=== PATIENT | male | born 1960 | race Caucasian/White ===

== ENCOUNTER 2020-04-12 08:48 | Outpatient (CLI) | payer MEDICARE, SELFPAY ==
--- NOTE | 2020-04-12 09:12 | CT_ITS ---
WS: [id number] CT NECK WITH CONTRAST HISTORY: TONSIL CANCER TECHNIQUE: Contiguous 5 mm axial images are performed through the neck with intravenous contrast. Sag ittal and coronal reformats are also submitted. All CT scans at [facility] use at least o ne of these dose optimization techniques: automated exposure control; mA and/or kV adjustment per pat ient size (includes targeted exams where dose is matched to clinical indication); or iterative recons truction. CONTRAST: CONTRAST: Omnipaque 300; 75 mL IV. DLP: 2710.46 mGycm COMPARISON: 09/28/2019 and 12/22/2018 Nasopharynx, oropharynx, hypopharynx and larynx are unremarkable. No soft tissue masses or abnormal e nhancement. No evidence for recurrent tonsillar or peritonsillar mass or neoplasm. Torus tubarius and fossa of Rosenmuller and parapharyngeal fat are normal. No significant lymphadenopathy is identified. Thyroid gland and salivary glands are normally enhancing with no masses. Degenerative disc disease and osteophytic changes throughout the cervical spine. 2 mm retrolisthesis of C3. No osteoblastic or osteolytic changes. Mild central and foraminal stenosis at multiple levels in the cervical spine from degenerative changes. Visualized portions of the skull base demonstrate no abnormalities. Orbits and globes are within norm al limits. No soft tissue masses. Visualized paranasal sinuses and mastoid air cells are normal. Lung apices are clear. CT/CT neck w con* [id number] IMPRESSION: 1. No cervical chain lymphadenopathy. 2. No recurrent or residual tonsillar carcinoma identified.
--- NOTE | 2020-04-12 09:12 | CT_ITS ---
WS: [id number] CT CHEST WITH INTRAVENOUS CONTRAST HISTORY: TONSIL CANCER TECHNIQUE: Contiguous 5 mm axial imaging performed on the thorax. Coronal and sagittal reformats are submitted. All CT scans at [facility] use at least one of these dose optimization techniq ues: automated exposure control; mA and/or kV adjustment per patient size (includes targeted exams wh ere dose is matched to clinical indication); or iterative reconstruction. CONTRAST: Omnipaque 300; 75 mL IV. DLP: 554.67 mGycm COMPARISON: 09/28/2019 Lungs and central airway: No pulmonary nodule or mass or pneumonia. Pleura: Normal. No pleural effusion. Heart and pericardium: Normal size heart. No pericardial effusion. Mediastinum and ximena: No mediastinum or hilar adenopathy. Vessels: Normal size aortic and pulmonary artery. No coronary artery calcifications. Chest wall and lower neck: No soft tissue masses. Upper abdomen: Small hiatal hernia. Visualized liver is negative. Normal adrenal glands. Osseous structures: Degenerative disc disease and spondylitic changes in the midthoracic spine. No os teoblastic or osteolytic bone disease. CT/CT chest w con* [id number] IMPRESSION: 1. No evidence for metastatic disease to the lungs. 2. No adenopathy. 3. Small hiatal hernia.
[2020-04-12] MEDS: iohexol 300 mg/mL 100 mL Btl IV ×2 (09:35→09:36)
== END 2020-04-12 08:49 | disposition home or self-care (01) ==
PROVIDERS: Family Provider Family Medicine; Visit Provider Radiology Radiation Oncology
DX: C09.9 Malignant neoplasm of tonsil, unspecified (principal)
CPT/HCPCS: 70491; 71260; Q9967

== ENCOUNTER 2020-04-14 14:32 | Outpatient (CLI) | payer MEDICARE, SELFPAY ==
--- NOTE | 2020-04-14 16:33 | ONCRAD EPV_ITS ---
Radiation Oncology Established Patient Visit Patient: Ashlyn MR#: [id number] : 1960> Age: 59> Sex: Male> Dictated by: Dr. James Silverman Date of Service: 04/14/2020 Referring Physician(s) : Dr. Zachary Kennedy Diagnosis: C09.9 - Malignant neoplasm of tonsil, unspecified, Diagnosed 07/11/2018 (Active) Radiotherapy to Date: Course: Head Neck, Treatment Site: [facility]54Gy, Ref. ID: [id number], Energy: 6X, Dose/Fx (cGy): 200, #Fx: , Dose Correction (cGy): 0, Total Dose (cGy): 2,400, Start Date: 09/11/2018, End Date: 09/26/2018, Elapsed Days: 15 Treatment Site: [facility]54Gy, Ref. ID: [id number], Energy: 6X, Dose/Fx (cGy): 200, #Fx: 4 / 4, Dose Correction (cGy): 0, Total Dose (cGy): 800, Start Date: 10/01/2018, End Date: 10/28/2018, Elapsed Days: 27 Treatment Site: [facility]54Gy, Ref. ID: [id number], Energy: 6X, Dose/Fx (cGy): 200, #Fx: 5 / 5, Dose Correction (cGy): 0, Total Dose (cGy): 1,000, Start Date: 10/29/2018, End Date: 11/04/2018, Elapsed Days: 6 Treatment Site: [facility]54Gy, Ref. 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 Doing well overall he is eating well. His taste is improving. His saliva has improved. He is fully active with good energy level. He has gained some weight back. He has no neck or swallowing pain. He continues to chew one third of a can of chewing tobacco a day. Prior to treatment he had full mouth extraction and wears only his upper dentures he cannot place his lower dentures as they do not fit well. Current Medications: Gabapentin, hydrocodone-Acetaminophen, omeprazole, one Daily Mens 50+ Multivit. Allergies: No Known Allergies Current Complaints / Review of Systems: Constitutional - Denies lack of appetite, fatigue, fever and night sweats. Eyes - Denies blurred vision but close vision has gotten worse. ENMT - Complains of problems with hearing, mouth dryness but has improved and tinnitus. Denies dysphagia but has odynophagia with a certain medication, ear pain, stomatitis but has a sore on the left corner of his mouth and altered taste. Neck - Denies neck pain and decreased range of motion. Integumentary - Complains of rash off and on the back of the neck from Shingles. Cardiovascular - Denies chest pain and edema. Respiratory - Denies cough, dyspnea, hiccoughs and wheezing. Gastrointestinal - Complains of occasional constipation. Complains of heartburn / dyspepsia. Denies abdominal pain, diarrhea, hemorrhoids, melena / GI bleeding, nausea and vomiting. Genitourinary (M) - Complains of frequency and nocturia gets up 4 to 5 times per night. Denies dysuria and urgency. Musculoskeletal - Complains of joint pain in the back, right shoulder and knuckles of the fingers.. Denies bone pain and muscle weakness. Neurologic - Denies dizziness and headaches. Endocrine - Denies diabetes and thyroid disease. Hematologic/Lymphatic - Denies tender or enlarged lymph nodes.. Vital Signs: Performed on 04/14/2020 2:58 PM BMI - 27.096 kg/m2 (high), Height - 67.00 in, Weight - 173.0 lbs, Temperature - 98.7 f, Pulse - 67, Respiration - 18, O2 Sat - 97 %, Pain - 0 and BP - 123/ 75 mm(hg). Physical Exam: General: Alert and oriented x 3. No acute distress. HEENT examination revealed normal-appearing oral cavity. Tonsillar regions were symmetric with normal-appearing mucosa. He had good pooling of his saliva in the oral cavity. Bimanual palpation of the tongue base and tonsil region were normal. Next were supple with no adenopathy. Performance Status: 0 - Fully active, able to carry on all predisease activities without restrictions. (ECOG) Lab: None pending. Pathology: Primary, c09.9 - malignant neoplasm of tonsil, unspecified, Diagnosed 07/11/2018 (active) and Secondary, z92.3 - personal history of irradiation, Diagnosed 04/21/2019 (active). Imaging: CT scan of the neck and chest from April 12, 2020 revealed symmetric oral pharynx with no tonsillar or other masses. Neck regions revealed no adenopathy. CT scan of the chest also from 07/13/2020 revealed no mediastinal adenopathy or pulmonary nodules. Impression: In summary my impression is that of bulky stage Tamy (T4 N1 M0) squamous cell carcinoma the right tonsil and neck. He has had an excellent response to treatment is chronic toxicities of diminished taste and salivation are slowly improving. He has no desire for any saliva augmentation. I did rehabilitation counselor him to quit chewing tobacco. We will schedule him in follow-up in [address] scan of the neck and chest. Signed by: 04/14/2020 4:32:03 PM <<Signature on File>> Time spent with patient: CPT Code: CPT Code:
== END 2020-04-14 14:33 | disposition home or self-care (01) ==
LOC: ONCMED 14:35
PROVIDERS: PCP Family Medicine; Visit Provider Radiology Radiation Oncology
DX: C09.9 Malignant neoplasm of tonsil, unspecified (principal); F17.220 Nicotine dependence, chewing tobacco, uncomplicated; Z92.3 Personal history of irradiation
CPT/HCPCS: 99214

== ENCOUNTER 2020-10-28 08:37 | Outpatient (CLI) | payer MEDICARE, SELFPAY ==
--- NOTE | 2020-10-28 08:48 | CT_ITS ---
WS: [id number] CT scan of the chest with IV contrast, additional two-dimensional coronal and sagittal reconstruction was performed. 10/28/2020 Clinical Data: MALIGNANT NEOPLASM OF TONSIL Comparison: CT chest, 04/12/2020. DLP: 537.[address] scans at [facility] use at least one of these dose optimization techniques: automat ed exposure control; mA and/or kV adjustment per patient size (includes targeted exams where dose is matched to clinical indication); or iterative reconstruction. Findings: There is no evidence of metastatic disease. No nodules, masses or effusions are seen. The heart size is normal with no pericardial effusion. The pulmonary arterial system and thoracic aorta demonstrate no abnormalities or dilatations. No pneumoni a or pneumothorax is seen. There is no axillary or significant mediastinal adenopathy. There is a sma ll hiatal hernia. Minimal degenerative change of the thoracic vertebral bodies is seen. The upper abdomen shows no change from before. CT/CT chest w con* [id number] Impression: 1. Negative for acute cardiopulmonary disease. 2. Negative for metastatic disease.
--- NOTE | 2020-10-28 08:49 | CT_ITS ---
WS: [id number] CT scan of the neck. Additional two-dimensional coronal and sagittal reconstruction was performed. Clinical Data: MALIGNANT NEOPLASM OF TONSIL Comparison: CT neck, 04/12/2020. DLP: 2849.[address] scans at [facility] use at least one of these dose optimization techniques: automat ed exposure control; mA and/or kV adjustment per patient size (includes targeted exams where dose is matched to clinical indication); or iterative reconstruction. Findings: No tumor recurrence of the right tonsillar mass is seen. The oral pharynx, region of the tonsils and nasopharynx show only minimal scarring on the right. This is unchanged from the previous study. No lymphadenopathy is noted. The salivary glands are unremarkable. There is no prevertebral soft tiss ue swelling. The larynx is symmetric. The thyroid gland shows normal enhancement. The floor of the mo uth and parapharyngeal spaces are normal. The oral cavity is unremarkable. The carotid arteries bifurcate normally. The vertebral arteries are unremarkable. The cervical spine shows osteoarthritis and multiple levels of degenerative disc narrowing. The lung apices show no abno rmalities. The portions of the intracranial circulation which are seen demonstrate no abnormalities. No erosion of the skull or skull base is seen. CT/CT neck w con* [id number] Impression: 1. Minimal scarring in the region of the right tonsil. 2. No evidence of any tumor recurrence. 3. Negative for lymphadenopathy.
[2020-10-28] MEDS: iohexol 300 mg/mL 100 mL Btl IV ×2 (09:17→09:22)
== END 2020-10-28 08:38 | disposition home or self-care (01) ==
LOC: RADWPI 08:43
PROVIDERS: PCP Family Medicine; Visit Provider Radiology Radiation Oncology
DX: C09.9 Malignant neoplasm of tonsil, unspecified (principal); Z92.3 Personal history of irradiation
CPT/HCPCS: 70491; 71260; Q9967

== ENCOUNTER 2020-11-04 08:06 | Outpatient (CLI) | payer MEDICARE, SELFPAY ==
--- NOTE | 2020-11-04 09:18 | ONCRAD EPV_ITS ---
Radiation Oncology Established Patient Note Patient: Caden Whitmore MR#: [id number] : 1960 Attending Physician: Gm Jane M.D. Date of Service: 11/04/2020 Caden Whitmore returned to my office this morning for a scheduled follow-up appointment. He completed head and neck radiotherapy in October 2018 for the management of his clinical stage RADHA (T4N1) squamous cell carcinoma of the right tonsil. Radiotherapy was administered between the dates of September 11, 2018 through November 07, 2018. A prescribed dose of 70 Gy was delivered in 35 fractions over 58 elapsed days. On review of systems, the patient denied any constitutional complaints including unintentional weight loss or fevers of unknown origin. He described improvement in xerostomia and dysgeusia. He denied any palpable lymphadenopathy in the neck. On physical examination, the patient weighed of 177 pounds. The temperature is 97.6???F. His blood pressure was 123/78 mmHg. The pulse was 63 bpm and his respiratory rate was 18 breaths per minute. The oral cavity had dry mucous membranes. There were no oropharyngeal masses. Examination of the neck did not demonstrate any hyperpigmentation. No palpable cervical adenopathy was noted. In summary, Caden Whitmore returned for a routinely scheduled follow-up. A follow-up CT of the neck and chest did not find recurrent nor metastatic disease. I will obtain a TSH level and he will continue follow-up with medical oncology as scheduled. Signed by: Dr. Gm Jane 11/04/2020 9:16:26 AM
[2020-11-04 10:17] LABS: Thyroid Stimulating Hormone 2.95 uIU/mL (0.27-4.20)
== END 2020-11-04 08:07 | disposition home or self-care (01) ==
LOC: ONCMED 08:09
PROVIDERS: PCP Family Medicine; Visit Provider Radiology Radiation Oncology
DX: Z08 Encounter for follow-up examination after completed treatment for malignant neoplasm (principal); Z85.818 Personal history of malignant neoplasm of other sites of lip, oral cavity, and pharynx
CPT/HCPCS: 36415; 84443; 99214

== ENCOUNTER 2021-05-24 07:49 | Outpatient (CLI) | payer MEDICARE, SELFPAY ==
--- NOTE | 2021-05-24 08:50 | ONC FU_ITS ---
Dr. Bergeron follow up note Patient: Caden Whitmore Unit #: [id number]: 1960 Dicatated By: Jamari Bergeron M.D.Date of Visit:May 24, 2021 Onc Med Follow-up/Prog Note History of Present Illness: Mr. Caden Whitmore is a 60-year-old gentleman with prolonged history of chew tobacco noted a mass in his throat on the right side, he tried antibiotics that did not help him much and the mass continued to grow slowly subsequently he was evaluate by ENT and biopsy was obtained which confirmed squamous cell carcinoma, p16 positive. Patient underwent CT PET scan on 07/05/2018 which showed extensive lymphadenopathy including FDG positive mediastinal lymph nodes. Has history of chronic back pain/right shoulder pain for which he takes narcotics prescribed by PMD Started on combined chemoradiation and first dose of chemotherapy with high-dose cisplatin was given on 09/11/2018 And second and final dose was given on 10/09/2018. History of abnormal LFTs due to Tylenol consumption for pain due to injury . As per patient his LFTs improved when he stopped taking Tylenol , CT scan of head and neck on 12/22/2018 by radiation oncology.Showed improved or essentially resolved right tonsillar carcinoma Previously described cervical lymphadenopathy has resolved, post treatment changes noted He still use G-tube on as-needed basis. Came for follow-up, denies any specific complaints, no fever chills, no nausea or vomiting, no hemoptysis hematemesis, no dysphagia, no cervical lymphadenopathy, no hemoptysis or hematemesis. Patient has been following radiation oncology and saw Dr. Silverman in October 2020, at that time, as per patient his CT scan of neck and chest showed no evidence of recurrence of disease or any abnormality in the chest. Patient said he used to follow Dr. Kennedy, ENT physician before but because of copayment of $50, he stopped going to ENT letter was followed by radiation oncology on regular basis, last time he saw Dr. Jane who is a new radiation oncologist and he asked him to see medical oncology or ENT for regular follow-up. Medications: Hydrocodone-Acetaminophen 1 Tablet (of 10-325 mg) Tablet Oral q 6 hours, Omeprazole 1 Capsule (of 40 mg) Capsule Delayed Release Oral daily, One Daily Mens 50+ Multivit 1 Tablet Oral daily Allergies: No Known Allergies. Review of Systems: Review of Systems is not available for this patient. Vital Signs: Performed on May 24, 2021 08:11 Height - 67.00 in Weight - 175.4 lbs (LOW) BSA - 1.91 sq.m BMI - 27.47 Temperature - 98.5 F Pulse - 55 /min (LOW) Respiration - 18 /min BP - 132/77 mm(hg) O2 Sat - 98 % Pain - 0 Fatigue - 5 Performance Status: 0 - Fully active, able to carry on all predisease activities without restrictions. (ECOG) Physical Examination: ENMT - No mouth sores, no thrush, no jaundice but poor oral hygiene, Respiratory - Lungs are clear to auscultation, Cardiovascular - Regular rate and rhythm of heart, Abdomen - Soft, bowel sounds present, Extremities - No visible edema. Lab/Imaging: Most recent lab results are not available for this patient. 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 Metastatic the right jugular digastric lymph nodes, metastatic mediastinal lymph nodes in subcarinal, inferior right paratracheal and AP window regions suspicious low-grade uptake in the right supraclavicular lymph node On 09/11/2018 Started on combined chemoradiation with high-dose cisplatin every 3 weeks ???2 Second and last course of high-dose cisplatin was given on 10/09/2018 Follow-up CT scan of neck done on 12/22/2018 showed improved or essentially resolved right tonsil carcinoma no residual enhancing mass, previously described cervical lymphadenopathy has resolved. Post Treatment changes noted History of abnormal LFTs, as per patient this was due to Tylenol consumption for pain due to injury, his LFTs improved when he stopped taking Tylenol. Status post mediastinoscopy done on 07/23/2018 and right paratracheal lymph node was biopsied and it was reactive, no evidence of malignancy. CT scan of chest done on October 28, 2020 showed no evidence of metastatic disease or other abnormality Plan: Discussed with patient regarding his question concerns and follow-up plans as radiation oncology suggested him to follow-up with either medical oncology or ENT but patient does not want to go to ENT because of copayment issues. In that case we will follow him with a physical exam, radiological studies, on exam there is no cervical lymphadenopathy, limited oral exam, no obvious changes but poor oral hygiene and, patient still chewing tobacco. Patient was advised to quit chewing tobacco and was offered any assistance he may need., At this point we will consider follow-up CT scan of neck, as CT scan of chest done on October 28, 2020 showed no evidence of metastatic disease or other abnormality so we will continue with yearly low contrast CT scan of chest, as patient has 3 to 7% risk of developing a second primary in the lung. And continue with 6 to 8-month CT scan of neck unless patient develop new symptoms. Patient return to clinic in 1 month with CBC CMP and TSH and CT scan of the neck Signed By: Jamari Bergeron M.D. <<Signature on File>>
== END 2021-05-24 07:50 | disposition home or self-care (01) ==
LOC: ONCMED 07:51
PROVIDERS: PCP Family Medicine; Visit Provider Internal Medicine Hematology & Oncology
DX: Z08 Encounter for follow-up examination after completed treatment for malignant neoplasm (principal); Z85.89 Personal history of malignant neoplasm of other organs and systems; Z92.21 Personal history of antineoplastic chemotherapy; Z92.3 Personal history of irradiation; F17.220 Nicotine dependence, chewing tobacco, uncomplicated; Z79.899 Other long term (current) drug therapy
CPT/HCPCS: 99214

== ENCOUNTER 2021-06-20 08:42 | Outpatient (CLI) | payer MEDICARE, SELFPAY ==
--- NOTE | 2021-06-20 08:54 | CT_ITS ---
WS: [id number] Exam: CT neck w con* [id number] Date/Time of Exam: 06/20/2021 8:54 AM Reason For Exam: MALIGNANT NEOPLASM OF THE TONSILS DLP: 1230.[address] scans at [facility] use at least one of these dose optimization techniques: automat ed exposure control; mA and/or kV adjustment per patient size (includes targeted exams where dose is matched to clinical indication); or iterative reconstruction. The neck is evaluated in the axial plane with sagittal and coronal reformatted images. Intravenous co ntrast was administered. There was no sign of neck mass or significant lymphadenopathy. The submandibular glands and parotid g lands are symmetrical side to side. The airway is patent. No mass is seen in the region of the tongue base. Vascular structures are unremarkable in appearance. Normal thyroid tissue. No superior mediast inal lymphadenopathy. Mucosal thickening in the floor the left maxillary sinus. Marked rightward rosetta ation of the nasal septum. Visualized upper lung zones are clear. No destructive bone lesions. Degene rative changes of the cervical spine. CT/CT neck w con* [id number] IMPRESSION: 1. No indication of neck mass or significant cervical lymphadenopathy. 2. Other minor findings as above.
[2021-06-20] MEDS: iohexol 300 mg/mL 100 mL Btl IV (09:14)
== END 2021-06-20 08:43 | disposition home or self-care (01) ==
PROVIDERS: PCP Family Medicine; Visit Provider Internal Medicine Hematology & Oncology
DX: C09.9 Malignant neoplasm of tonsil, unspecified (principal)
CPT/HCPCS: 70491; Q9967

== ENCOUNTER 2021-06-26 11:47 | Outpatient (CLI) | payer MEDICARE, SELFPAY ==
[2021-06-26 12:15] LABS: Basophils % 0.2 %; Eosinophils # 0.1 10^3/uL (0.0-0.8); Eosinophils % 3.2 %; Hematocrit 39.1 % (42.0-52.0); Hemoglobin 13.2 g/dL (11.7-16.6); Lymphocytes # 1.7 10^3/uL (0.8-4.8); Lymphocytes % 38.1 %; Mean Corpuscular HGB Conc 33.8 g/dL (30.0-36.0); Mean Corpuscular Hemoglobin 28.9 pg (28.0-34.0); Mean Corpuscular Volume 85.6 fL (80-94); Mean Platelet Volume 8.6 fL (7.4-10.4); Monocytes # 0.5 10^3/uL (0.2-0.9); Monocytes % 11.1 %; Neutrophils # 2.05 10^3/uL (1.8-7.7); Neutrophils % 47.4 %; Nucleated Red Blood Cells % 0 %; Platelet Count 251 10^3/cmm (130-400); Red Blood Count 4.57 10^6/uL (4.1-5.3); Red Cell Distribution Width 12.7 % (12.1-15.1); White Blood Count 4.3 10^3/uL (4.0-10.0)
[2021-06-26 12:53] LABS: Alanine Aminotransferase 12 U/L (0-41); Albumin Level 4.2 g/dL (3.5-5.2); Alkaline Phosphatase 69 IU/L (40-130); Aspartate Amino Transferase 20 U/L (0-40); Blood Urea Nitrogen 17 mg/dL (6-20); Carbon Dioxide 28 mmol/L (22-29); Chloride 102 mmol/L (98-107); Globulin 2.6 g/dL (1.3-4.6); Glomerular Filtration Rate 99.3 mL/min (90-130); Glucose 84 mg/dL (65-115); Osmolality Calculated 285 mOsm/kg (285-295); Sodium 137 mmol/L (136-145); Thyroid Stimulating Hormone 4.29 uIU/mL (0.27-4.20); Total Bilirubin 0.2 mg/dL (0.15-1.2); Total Protein 6.8 g/dL (6.6-8.7)
--- NOTE | 2021-06-26 16:46 | ONC FU_ITS ---
Dr. Bergeron follow up note Patient: Caden Whitmore Unit #: [id number]: 1960 Dicatated By: Jamari Bergeron M.D.Date of Visit:Jun 26, 2021 Onc Med Follow-up/Prog Note History of Present Illness: Mr. Caden Whitmore is a 60-year-old gentleman with prolonged history of chew tobacco noted a mass in his throat on the right side, he tried antibiotics that did not help him much and the mass continued to grow slowly subsequently he was evaluate by ENT and biopsy was obtained which confirmed squamous cell carcinoma, p16 positive. Patient underwent CT PET scan on 07/05/2018 which showed extensive lymphadenopathy including FDG positive mediastinal lymph nodes. Has history of chronic back pain/right shoulder pain for which he takes narcotics prescribed by PMD Started on combined chemoradiation and first dose of chemotherapy with high-dose cisplatin was given on 09/11/2018 And second and final dose was given on 10/09/2018. History of abnormal LFTs due to Tylenol consumption for pain due to injury . As per patient his LFTs improved when he stopped taking Tylenol , CT scan of head and neck on 12/22/2018 by radiation oncology.Showed improved or essentially resolved right tonsillar carcinoma Previously described cervical lymphadenopathy has resolved, post treatment changes noted Came for follow-up, denies any specific complaints, no fever chills, no nausea or vomiting, no diarrhea constipation, no dysphagia or hemoptysis or hematemesis, still chewing tobacco but denies smoking Medications: Hydrocodone-Acetaminophen 1 Tablet (of 10-325 mg) Tablet Oral q 6 hours, Omeprazole 1 Capsule (of 40 mg) Capsule Delayed Release Oral daily, One Daily Mens 50+ Multivit 1 Tablet Oral daily Allergies: No Known Allergies. Review of Systems: Review of Systems is not available for this patient. Vital Signs: Performed on Jun 26, 2021 16:33 Height - 67.00 in Weight - 170.8 lbs (LOW) BSA - 1.89 sq.m BMI - 26.75 Temperature - 98.9 F (HIGH) Pulse - 57 /min (LOW) Respiration - 18 /min BP - 124/63 mm(hg) O2 Sat - 96 % Pain - 0 Fatigue - 5 Performance Status: 0 - Fully active, able to carry on all predisease activities without restrictions. (ECOG) Physical Examination: ENMT - Poor oral hygiene, with palpable in the mouth, no thrush or sores or lymphadenopathy, Respiratory - Lungs are clear to auscultation, Cardiovascular - Regular rate and rhythm of heart, Abdomen - Soft, bowel sounds present, Extremities - No visible edema. Lab/Imaging: Most recent lab results are not available for this patient. 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 Metastatic the right jugular digastric lymph nodes, metastatic mediastinal lymph nodes in subcarinal, inferior right paratracheal and AP window regions suspicious low-grade uptake in the right supraclavicular lymph node On 09/11/2018 Started on combined chemoradiation with high-dose cisplatin every 3 weeks ???2 Second and last course of high-dose cisplatin was given on 10/09/2018 Follow-up CT scan of neck done on 12/22/2018 showed improved or essentially resolved right tonsil carcinoma no residual enhancing mass, previously described cervical lymphadenopathy has resolved. Post Treatment changes noted History of abnormal LFTs, as per patient this was due to Tylenol consumption for pain due to injury, his LFTs improved when he stopped taking Tylenol. Status post mediastinoscopy done on 07/23/2018 and right paratracheal lymph node was biopsied and it was reactive, no evidence of malignancy. CT scan of chest done on October 28, 2020 showed no evidence of metastatic disease or other abnormality Plan: Discussed with patient regarding his labs white blood count 4.3 hemoglobin 13.2 hematocrit 39.1 platelets 251,000 CMP within normal limits and follow-up CT scan of neck done on June 20, 2021 shows no indication of neck mass or significant cervical lymphadenopathy Clinically, patient is doing well with no new signs symptom suggestive of recurrence of disease, his lab work-up is within normal range We will continue to monitor and he will return to clinic in 6 months with CMP, CT scan of neck and low-dose contrast CT scan of chest. Patient was advised to quit chewing tobacco, was offered any assistance he may need Signed By: Jamari Bergeron M.D. <<Signature on File>>
== END 2021-06-26 11:48 | disposition home or self-care (01) ==
LOC: ONCMED 11:48
PROVIDERS: PCP Family Medicine; Visit Provider Internal Medicine Hematology & Oncology
DX: Z08 Encounter for follow-up examination after completed treatment for malignant neoplasm (principal); Z85.89 Personal history of malignant neoplasm of other organs and systems; Z92.21 Personal history of antineoplastic chemotherapy; Z92.3 Personal history of irradiation; F17.220 Nicotine dependence, chewing tobacco, uncomplicated; Z79.899 Other long term (current) drug therapy
CPT/HCPCS: 36415; 80053; 84443; 85025; 99214

== ENCOUNTER 2021-11-15 12:49 | Outpatient (CLI) | payer MEDICARE, SELFPAY ==
--- NOTE | 2021-11-15 | CT_ITS ---
WS: [id number] CT NECK TECHNIQUE: Contrast-enhanced CT of the neck with coronal and sagittal reformatted images. CLINICAL INFORMATION: MALIGNANT NEOPLASM TONSIL COMPARISON: June 20, 2021, October 28, 2020, PET/CT April 18, 2019. DLP: 1098.[address] scans at [facility] use at least one of these dose optimization techniques: automated e xposure control; mA and/or kV adjustment per patient size (includes targeted exams where dose is matc hed to clinical indication); or iterative reconstruction. FINDINGS: History of right tonsillar carcinoma. No evidence of residual or recurrent enhancing lesion in the to nsils. Treatment-related changes involving the soft tissues of the neck on the right. Normal posterio r nasopharynx. Normal parapharyngeal fat. No cervical lymphadenopathy. Parotid and submandibular glands are normal. No evidence of supraglottic or glottic mass. Subglottic airway is normal. Visualized paranasal sinuses and mastoid air cells well aerated. Moderate spondylit ic changes cervical spine unchanged. Mild central canal stenosis in the mid cervical spine at C3-C6. CT/CT neck w con* [id number] IMPRESSION: 1. No evidence of residual or recurrent right tonsillar carcinoma. No residual enhancing mass. 2. No cervical lymphadenopathy. 3. Post therapeutic changes involving the soft tissues of the head and neck. 4. No evidence of supraglottic or glottic mass. 5. Normal salivary glands.
--- NOTE | 2021-11-15 | CT_ITS ---
WS: [id number] CT CHEST TECHNIQUE: Contrast enhanced CT of the chest with coronal and sagittal reformatted images. CLINICAL INFORMATION: MALIGNANT NEOPLASM TONSIL COMPARISON: CT October 28, 20202017April 12, 2020. DLP: 1001.[address] scans at [facility] use at least one of these dose optimization techniques: automated e xposure control; mA and/or kV adjustment per patient size (includes targeted exams where dose is matc hed to clinical indication); or iterative reconstruction. FINDINGS: Both lungs are well aerated. No suspicious pulmonary parenchymal abnormalities. No acute pulmonary in filtrates. No evidence of metastatic disease in the chest. No mediastinal or hilar lymphadenopathy. N ormal caliber thoracic aorta. Proximal main pulmonary arteries appear normal. No axillary lymphadenop athy. Diffuse fatty infiltration of the liver.Left renal atrophy partially visualized. Small right renal cy st. Hypertrophic changes thoracic spine. CT/CT chest w con* [id number] IMPRESSION: 1. No suspicious pulmonary parenchymal opacities. 2. No mediastinal or hilar lymphadenopathy. 3. No evidence of metastatic disease in the chest
[2021-11-15] MEDS: iodixanol 320 mg/mL 100mL Btl IV ×2 (15:06→15:07)
== END 2021-11-15 12:50 | disposition home or self-care (01) ==
PROVIDERS: PCP Family Medicine; Visit Provider Internal Medicine Hematology & Oncology
DX: C09.9 Malignant neoplasm of tonsil, unspecified (principal)
CPT/HCPCS: 70491; 71260; Q9967

== ENCOUNTER 2021-11-22 08:02 | Outpatient (CLI) | payer MEDICARE, SELFPAY ==
[2021-11-22 08:47] LABS: Basophils % 0.2 %; Eosinophils # 0.2 10^3/uL (0.0-0.8); Eosinophils % 4.5 %; Hematocrit 40.8 % (42.0-52.0); Hemoglobin 13.9 g/dL (11.7-16.6); Lymphocytes # 1.5 10^3/uL (0.8-4.8); Lymphocytes % 34.4 %; Mean Corpuscular HGB Conc 34.1 g/dL (30.0-36.0); Mean Corpuscular Hemoglobin 28.6 pg (28.0-34.0); Mean Platelet Volume 8.8 fL (7.4-10.4); Monocytes # 0.4 10^3/uL (0.2-0.9); Neutrophils # 2.18 10^3/uL (1.8-7.7); Neutrophils % 51.7 %; Nucleated Red Blood Cells % 0 %; Platelet Count 276 10^3/cmm (130-400); Red Blood Count 4.86 10^6/uL (4.1-5.3); Red Cell Distribution Width 12.6 % (12.1-15.1); White Blood Count 4.2 10^3/uL (4.0-10.0)
[2021-11-22 09:22] LABS: Alanine Aminotransferase 11 U/L (0-41); Albumin Level 4.4 g/dL (3.5-5.2); Alkaline Phosphatase 68 IU/L (40-130); Anion Gap 16.3 (5-19); Aspartate Amino Transferase 15 U/L (0-40); Blood Urea Nitrogen 19 mg/dL (6-20); Calcium 9.2 mg/dL (8.5-10.5); Carbon Dioxide 23 mmol/L (22-29); Chloride 103 mmol/L (98-107); Globulin 2.8 g/dL (1.3-4.6); Glomerular Filtration Rate 86.4 mL/min (90-130); Glucose 112 mg/dL (65-115); Osmolality Calculated 289 mOsm/kg (285-295); Potassium 4.3 mmol/L (3.5-5.1); Sodium 138 mmol/L (136-145); Total Bilirubin 0.2 mg/dL (0.15-1.2); Total Protein 7.2 g/dL (6.6-8.7)
[2021-11-22 10:30] LABS: Thyroid Stimulating Hormone 6.75 uIU/mL (0.27-4.20)
--- NOTE | 2021-11-22 13:53 | ONC FU_ITS ---
Dr. Bergeron follow up note Patient: Caden Whitmore Unit #: [id number]: 1960 Dicatated By: Jamari Bergeron M.D.Date of Visit:Nov 22, 2021 Onc Med Follow-up/Prog Note History of Present Illness: Mr. 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 Patient underwent CT PET scan on 07/05/2018 which showed extensive lymphadenopathy including FDG positive mediastinal lymph nodes. Has history of chronic back pain/right shoulder pain for which he takes narcotics prescribed by PMD Started on combined chemoradiation and first dose of chemotherapy with high-dose cisplatin was given on 09/11/2018 And second and final dose was given on 10/09/2018. History of abnormal LFTs due to Tylenol consumption for pain due to injury . As per patient his LFTs improved when he stopped taking Tylenol , CT scan of head and neck on 12/22/2018 by radiation oncology.Showed improved or essentially resolved right tonsillar carcinoma Previously described cervical lymphadenopathy has resolved, post treatment changes noted Follow-up CT scan of the neck done on November 15, 2021 showed no evidence of residual or recurrent right tonsil carcinoma. No cervical lymphadenopathy post therapeutic changes involving soft tissue at the neck. CT scan of chest done on November 15, 2021 shows no suspicious pulmonary parenchymal opacities, no mediastinal or hilar lymphadenopathy Came for follow-up, denies any specific complaints, no fever chills, no nausea or vomiting, no diarrhea or constipation, no dysphagia, no hemoptysis hematemesis, still chewing tobacco. Otherwise no new bony pains no other symptom, appetite is good, gaining weight. Medications: Hydrocodone-Acetaminophen 1 Tablet (of 10-325 mg) Tablet Oral q 6 hours, Omeprazole 1 Capsule (of 40 mg) Capsule Delayed Release Oral daily, One Daily Mens 50+ Multivit 1 Tablet Oral daily Allergies: No Known Allergies. Review of Systems: Review of Systems is not available for this patient. Vital Signs: Performed on Nov 22, 2021 08:35 Height - 67.00 in Weight - 187.6 lbs (HIGH) BSA - 1.97 sq.m BMI - 29.38 Temperature - 97.8 F (LOW) Pulse - 59 /min (LOW) Respiration - 18 /min BP - 148/84 mm(hg) (HIGH) O2 Sat - 98 % Pain - 0 Fatigue - 0 Performance Status: 0 - Fully active, able to carry on all predisease activities without restrictions. (ECOG) Physical Examination: ENMT - No mouth sores, no thrush, no jaundice, Respiratory - Lungs are clear to auscultation, Cardiovascular - Regular rate and rhythm of heart, Abdomen - Soft, bowel sounds present, Extremities - No visible edema. Lab/Imaging: Most recent lab results are not available for this patient. 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 Metastatic the right jugular digastric lymph nodes, metastatic mediastinal lymph nodes in subcarinal, inferior right paratracheal and AP window regions suspicious low-grade uptake in the right supraclavicular lymph node On 09/11/2018 Started on combined chemoradiation with high-dose cisplatin every 3 weeks ???2 Second and last course of high-dose cisplatin was given on 10/09/2018 Follow-up CT scan of neck done on 12/22/2018 showed improved or essentially resolved right tonsil carcinoma no residual enhancing mass, previously described cervical lymphadenopathy has resolved. Post Treatment changes noted History of abnormal LFTs, as per patient this was due to Tylenol consumption for pain due to injury, his LFTs improved when he stopped taking Tylenol. Status post mediastinoscopy done on 07/23/2018 and right paratracheal lymph node was biopsied and it was reactive, no evidence of malignancy. CT scan of chest done on October 28, 2020 showed no evidence of metastatic disease or other abnormality Plan: Discussed with patient regarding his labs, white blood count 4.2 hemoglobin 13.9 hematocrit 40.8 platelets 276,000 CMP within normal limits Clinically, patient doing well with no new signs symptoms history of recurrence of disease his follow-up CT scan of neck showed no evidence of recurrence of disease, his follow-up CT scan of chest shows no abnormality. Patient chew tobacco, he was advised to quit was offered any assistance he may need. As per patient he is following with ENT on regular basis, in that case he will return to clinic in 6 months for follow-up Signed By: Jamari Bergeron M.D. <<Signature on File>>
== END 2021-11-22 08:03 | disposition home or self-care (01) ==
LOC: ONCMED 08:05
PROVIDERS: PCP Family Medicine; Visit Provider Internal Medicine Hematology & Oncology
DX: Z08 Encounter for follow-up examination after completed treatment for malignant neoplasm (principal); Z85.819 Personal history of malignant neoplasm of unspecified site of lip, oral cavity, and pharynx; R59.1 Generalized enlarged lymph nodes; Z87.891 Personal history of nicotine dependence
CPT/HCPCS: 36415; 80053; 84443; 85025; 99214

== ENCOUNTER 2021-12-06 08:36 | Outpatient (CLI) | payer MEDICARE, SELFPAY ==
[2021-12-06 09:41] LABS: Thyroid Stimulating Hormone 1.52 uIU/mL (0.27-4.20)
== END 2021-12-06 08:37 | disposition home or self-care (01) ==
LOC: ONCMED 08:41
PROVIDERS: PCP Family Medicine; Visit Provider Nurse Practitioner Family
DX: Z08 Encounter for follow-up examination after completed treatment for malignant neoplasm (principal); Z85.89 Personal history of malignant neoplasm of other organs and systems; E03.9 Hypothyroidism, unspecified; Z79.899 Other long term (current) drug therapy; Z87.828 Personal history of other (healed) physical injury and trauma; Z92.21 Personal history of antineoplastic chemotherapy; Z92.3 Personal history of irradiation
CPT/HCPCS: 36415; 84443; 99214

== ENCOUNTER 2022-06-20 10:47 | Oncology outpatient (recurring) (ONCR) | payer MEDICARE, SELFPAY ==
[2022-06-20 12:28] LABS: Basophils % 0.2 %; Eosinophils # 0.2 10^3/uL (0.0-0.8); Eosinophils % 3.1 %; Hematocrit 37.8 % (42.0-52.0); Hemoglobin 13.3 g/dL (11.7-16.6); Lymphocytes # 1.5 10^3/uL (0.8-4.8); Lymphocytes % 29.7 %; Mean Corpuscular HGB Conc 35.2 g/dL (30.0-36.0); Mean Corpuscular Volume 82.4 fl (80-94); Monocytes # 0.4 10^3/uL (0.2-0.9); Monocytes % 7.9 %; Neutrophils # 2.89 10^3/uL (1.8-7.7); Neutrophils % 58.9 %; Nucleated Red Blood Cells % 0 %; Platelet Count 278 10^3/cmm (130-400); Red Blood Count 4.59 10^6/uL (4.1-5.3); Red Cell Distribution Width 12.5 % (12.1-15.1); White Blood Count 4.9 10^3/uL (4.0-10.0)
[2022-06-20 12:52] LABS: Alanine Aminotransferase 12 U/L (0-41); Albumin Level 4.2 g/dL (3.5-5.2); Alkaline Phosphatase 72 IU/L (40-130); Anion Gap 14.4 (5-19); Aspartate Amino Transferase 14 U/L (0-40); Blood Urea Nitrogen 18 mg/dL (6-20); Calcium 9.3 mg/dL (8.5-10.5); Carbon Dioxide 25 mmol/L (22-29); Chloride 102 mmol/L (98-107); Globulin 2.5 g/dL (1.3-4.6); Glomerular Filtration Rate 98.9 mL/min (90-130); Glucose 84 mg/dL (65-115); Osmolality Calculated 285 mOsm/kg (285-295); Potassium 4.4 mmol/L (3.5-5.1); Sodium 137 mmol/L (136-145); Total Bilirubin 0.2 mg/dL (0.15-1.2); Total Protein 6.7 g/dL (6.6-8.7)
== END 2022-06-20 10:48 | disposition home or self-care (01) ==
PROVIDERS: PCP Family Medicine; Visit Provider Internal Medicine Hematology & Oncology
DX: Z08 Encounter for follow-up examination after completed treatment for malignant neoplasm (principal); Z85.89 Personal history of malignant neoplasm of other organs and systems; Z92.3 Personal history of irradiation; Z92.21 Personal history of antineoplastic chemotherapy
CPT/HCPCS: 80053; 85025; 99214; G0463